=== PATIENT | female | born 1985 | race African-American/Black ===

== ENCOUNTER 2016-12-06 23:31 | Emergency (ER) | payer SELFPAY | END 2016-12-07 00:10 | disposition left against medical advice (07) | LOC: ER 23:31 | DX: Z53.21 Procedure and treatment not carried out due to patient leaving prior to being seen by health care provider (principal) ==

== ENCOUNTER 2020-06-12 21:00 | Emergency (ER) | payer SELFPAY ==
--- NOTE | 2020-06-12 22:04 | ER Document Report ---
ED Medical Screen (RME) - General Chief Complaint: Flank Pain Stated Complaint: FLANK PAIN/LOWER ABDOMINAL PAIN Time Seen by Provider: 06/12/20 22:00 Mode of Arrival: Ambulatory Information source: Patient Notes: Patient is a 35-year-old female comes emergency room complaining of lower pelvic pain. Patient states it started just a little over a week ago when she thought she had a urinary tract infection. She has some urgency and pain and discomfort with that. She also finished her. 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 Patient is sexually active with same partner. She denies any discharge vaginally. She does states that her bowel movements are slightly off there slightly than usual but it does not appear to be a C. 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 difficile in the past but nothing recently. She has not been on any antibiotics recently either. Patient denies any history of hypertension or diabetes. She does smoke. She denies any history of kidney stones in the past and does not have any kind of back or flank pain. She has not been nauseated or vomiting with this discomfort. Physical examination: Patient is a well-nourished well-developed 35-year-old female no apparent distress on examination. Cardiac: Patient is a regular rate and rhythm on the monitor of 95 bpm no murmurs auscultated. Lungs: Bilateral breath sounds breath sounds increased clear auscultation. Abdomen: In the sitting position patient has bowel sounds present all 4 quads although she has some mild tenderness suprapubically in a sitting position to palpation there is no periumbilical tenderness that I can palpate at this time by sitting. Patient has no flank tenderness to percussion. I have greeted and performed a rapid initial assessment of this patient. A comprehensive ED assessment and evaluation of the patient, analysis of test results and completion of the medical decision making process will be conducted by additional ED providers. Dictation of this chart was performed using voice recognition software; therefore, there may be some unintended grammatical errors. TRAVEL OUTSIDE OF THE [place] IN LAST 30 DAYS: No - Related Data Allergies/Adverse Reactions: No Known Allergies Allergy (Verified 09/02/15 00:30) Past Medical History Past Surgical History: Reports: Hx Umbilical Hernia - Immunizations Immunizations up to date: Yes Hx Diphtheria, Pertussis, Tetanus Vaccination: Yes Physical Exam - Vital signs Vitals: Temp Pulse Resp BP Pulse Ox 97.9 F 96 17 166/112 H 100 06/12/20 21:05 06/12/20 21:05 06/12/20 21:05 06/12/20 21:05 06/12/20 21:05 Course - Vital Signs Vital signs: Temp Pulse Resp BP Pulse Ox 97.9 F 96 17 166/112 H 100 06/12/20 21:05 06/12/20 21:05 06/12/20 21:05 06/12/20 21:05 06/12/20 21:05
[2020-06-12 23:12] LABS: APPEARANCE,URINE CLEAR; BILIRUBIN,URINE NEGATIVE (NEGATIVE); COLOR,URINE YELLOW; GLUCOSE, URINE NEGATIVE (NEGATIVE); KETONES,URINE TRACE mg/dL (NEGATIVE); LEUKOCYTE ESTERASE,URINE NEGATIVE (NEGATIVE); NITRITE,URINE NEGATIVE (NEGATIVE); PROTEIN,URINE NEGATIVE (NEGATIVE); URINE SPECIFIC GRAVITY 1.015; UROBILINOGEN,URINE NEGATIVE mg/dL (<2.0)
--- NOTE | 2020-06-13 02:47 | ER Document Report ---
ED GI/ - General Chief Complaint: Urinary Problem Stated Complaint: FLANK PAIN/LOWER ABDOMINAL PAIN Time Seen by Provider: 06/12/20 22:00 Primary Care Provider: FARHAN EGAN MD [ACTIVE STAFF] - Follow up in 1 week Mode of Arrival: Ambulatory Notes: Patient is a 35-year-old female who comes to the emergency department for chief complaint of lower abdominal pain. Pain is slightly worse on the left side but is on both sides. She occasionally feels some pain in her lower back as well. She states she has some urinary frequency and mild discomfort afterwards, denies vaginal bleeding or discharge. She denies vomiting but states she has occasional vague nausea. She is able to eat without difficulty. She reports "slightly slimy" bowel movements but denies abdominal vomit otherwise. She has had an umbilical hernia repair years ago, orthopedic surgery, denies medical history otherwise, denies any daily medications. TRAVEL OUTSIDE OF THE [place] IN LAST 30 DAYS: No - Related Data Allergies/Adverse Reactions: No Known Allergies Allergy (Verified 09/02/15 00:30) Past Medical History - General Information source: Patient - Social History Smoking Status: Current Some Day Smoker Frequency of alcohol use: None Drug Abuse: None Lives with: Family Family History: Reviewed & Not Pertinent Past Surgical History: Reports: Hx Umbilical Hernia - Immunizations Immunizations up to date: Yes Hx Diphtheria, Pertussis, Tetanus Vaccination: Yes Review of Systems - Review of Systems Constitutional: No symptoms reported EENT: No symptoms reported Cardiovascular: No symptoms reported Respiratory: No symptoms reported Gastrointestinal: See HPI Genitourinary: See HPI Female Genitourinary: See HPI Musculoskeletal: No symptoms reported Skin: No symptoms reported Hematologic/Lymphatic: No symptoms reported Neurological/Psychological: No symptoms reported Physical Exam - Vital signs Vitals: Temp Pulse Resp BP Pulse Ox 97.9 F 96 17 166/112 H 100 06/12/20 21:05 06/12/20 21:05 06/12/20 21:05 06/12/20 21:05 06/12/20 21:05 - Notes Notes: GENERAL: Alert, interacts well. No acute distress. HEAD: Normocephalic, atraumatic. EYES: Pupils equal, round, and reactive to light. Extraocular movements intact. ENT: Oral mucosa moist, tongue midline. Oropharynx unremarkable. Airway patent. Nares patent, sinuses non-tender, ear canals unremarkable, TM's intact. NECK: Full range of motion. Supple. Trachea midline. No lymphadenopathy. LUNGS: Clear to auscultation bilaterally, no wheezes, rales, or rhonchi. No respiratory distress. Non-tender chest wall. HEART: Regular rate and rhythm. No murmur ABDOMEN: Soft, non-tender. Non-distended. Bowel sounds present in all 4 quadrants. GENITOURINARY: Deferred EXTREMITIES: Moves all 4 extremities spontaneously. No edema, normal radial and dorsalis pedis pulses bilaterally. No cyanosis. BACK: no cervical, thoracic, lumbar midline tenderness. No saddle anesthesia, normal distal neurovascular exam. Moves all extremities in full range of motion. NEUROLOGICAL: Alert and oriented x3. Normal speech. Cranial nerves II through XII grossly intact. Strength 5/5 in all extremities. PSYCH: Normal affect, normal mood. SKIN: Warm, dry, normal turgor. No rashes or lesions noted. Course - Re-evaluation Re-evalutation: Patient is talkative and well-appearing. However despite location that she tells me patient is actually somewhat tender in the mid to upper abdomen in addition to mildly tender in the lower abdomen. Symptoms have been going on for couple of weeks. There is no guarding, distention, rigidity. No CVA tenderness. CBC, chemistry, urinalysis are all unremarkable. Ultrasound without any acute findings, shows incidental nabothian cyst. KUB unremarkable per read although does appear to show some retained stool and gas on review. I did discuss different options including pelvic exam but this was declined, patient states she had this recently and was negative. Based on her evaluation very low suspicion of acute abdomen. I suspect pain is most likely bowel in nature, she will be treated for this, she was referred to gastroenterology, I discussed return precautions, patient states appreciation and agreement. Stable and well-appearing at time of discharge. Patient hypertensive here, however no headache, chest pain, or current complaints on my reevaluation. Patient states she will have this rechecked with primary care. - Vital Signs Vital signs: Temp Pulse Resp BP Pulse Ox 98.3 F 74 16 142/108 H 100 06/13/20 05:30 06/13/20 05:30 06/13/20 05:30 06/13/20 05:30 06/13/20 05:30 - Laboratory Result Diagrams: 06/13/20 03:01 06/13/20 03:01 Laboratory results interpreted by me: 06/12/20 06/13/20 06/13/20 21:21 03:01 03:01 MCH 26.5 L Potassium 3.5 L Glucose 115 H Urine Ketones TRACE H Urine Blood MODERATE H Discharge - Discharge Clinical Impression: Abdominal pain Qualifiers: Abdominal location: generalized Qualified Code(s): R10.84 - Generalized abdomin al pain Condition: Stable Disposition: HOME, SELF-CARE Additional Instructions: Your ultrasound and laboratory work-up do not show any concerning findings, your urine does not show infection. Based on your imaging, symptoms, and evaluation I suspect your pain is coming from your bowel. I recommend that the Bentyl, Colace, and Zofran as prescribed. You can also take Tylenol and/or ibuprofen if needed additionally. Symptoms should simply go away. 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 Return if you worsen including severe worsening pain, vomiting, fever, or any ot her concerning symptoms. Prescriptions: Dicyclomine HCl [Bentyl 20 mg Tablet] 20 mg PO QID PRN #20 tablet PRN Reason: Docusate Sodium [Colace 100 mg Capsule] 100 mg PO ASDIR PRN #30 capsule PRN Reason: Ondansetron [Zofran Odt 4 mg Tablet] 1 - 2 tab PO Q4H PRN #15 tab.rapdis PRN Reason: For Nausea/Vomiting Forms: Return to Work Referrals: FARHAN EGAN MD [ACTIVE STAFF] - Follow up in 1 week
[2020-06-13 03:20] LABS: ABSOLUTE BASOPHILS # (AUTO) 0.1 10^3/uL (0.0-0.2); ABSOLUTE EOSINOPHILS # (AUTO) 0.1 10^3/uL (0.0-0.6); ABSOLUTE LYMPHOCYTES (AUTO) 2.4 10^3/uL (0.5-4.7); ABSOLUTE MONOCYTES (AUTO) 0.8 10^3/uL (0.1-1.4); BASOPHILS % (AUTO) 0.6 % (0-2); EOSINOPHILS % (AUTO) 1.3 % (0-6); HEMATOCRIT 42.4 % (36.0-47.0); HEMOGLOBIN 13.8 g/dL (12.0-15.5); LYMPHOCYTES % (AUTO) 22.8 % (13-45); MEAN CORPUSCULAR HEMOGLOBIN 26.5 pg (27.0-33.4); MEAN CORPUSCULAR HGB CONC 32.4 g/dL (32.0-36.0); MEAN CORPUSCULAR VOLUME 82 fl (80-97); MONOCYTES % (AUTO) 7.4 % (3-13); PLATELET COUNT 334 10^3/uL (150-450); RED CELL DISTRIBUTION WIDTH 13.7 % (11.5-14.0); SEGMENTED NEUTROPHILS % (AUTO) 67.9 % (42-78); TOTAL CELLS COUNTED % (AUTO) 100 %; WHITE BLOOD COUNT 10.4 10^3/uL (4.0-10.5)
[2020-06-13 03:32] LABS: ALBUMIN 4.6 g/dL (3.5-5.0); ALKALINE PHOSPHATASE 77 U/L (38-126); ANION GAP 10 (5-19); ASPARTATE AMINO TRANSFERASE 20 U/L (14-36); BILIRUBIN,TOTAL 0.3 mg/dL (0.2-1.3); BLOOD UREA NITROGEN 9 mg/dL (7-20); CALCIUM 9.9 mg/dL (8.4-10.2); CARBON DIOXIDE 30 mmol/L (22-30); CHLORIDE 101 mmol/L (98-107); GLUCOSE 115 mg/dL (75-110); POTASSIUM 3.5 mmol/L (3.6-5.0); TOTAL PROTEIN 7.8 g/dL (6.3-8.2)
--- NOTE | 2020-06-13 03:34 | RADIOLOGY REPORT (SQ) ---
EXAM DESCRIPTION: X-ray abdomen 1 view CLINICAL DATA: 35 years Female abd pain/swelling TECHNICAL DATA: A single AP supine x-ray of the abdomen was performed on 06/13/2020 at 2:56 AM. Comparison: None. FINDINGS: The bowel gas pattern is nonspecific and nonobstructive. No pathologic abdominal or pelvic calcifications are identified. No abnormal air collections are identified. No focal soft tissue abnormalities are seen. No acute osseous abnormalities are identified. IMPRESSION: Nonspecific nonobstructive bowel gas pattern.
--- NOTE | 2020-06-13 03:57 | RADIOLOGY REPORT (SQ) ---
EXAM: US Pelvis Complete CLINICAL DATA: 35 years Female lower abd/left pelvic pain, LMP: 06/01/2020 TECHNICAL DATA: Ultrasound imaging of the pelvis was performed transabdominally and endovaginally on 06/13/2020 03:40. COMPARISONS: None FINDINGS: The uterus is normal in size, shape and echogenicity and measures 7.0 x 3.2 x 3.7 cm. The endometrial complex measures 0.7 cm in thickness. There is no endometrial fluid. The cervix measures approximately 2.9 cm in length. There is trace fluid in the endocervical canal. There is a small sharply circumscribed focal area of decreased echogenicity within the cervix to the right of midline with enhanced through transmission of sound measuring approximately 0.8 x 0.6 x 0.7 cm. This likely represents a mildly complex cervical nabothian cyst. The right ovary measures 2.3 x 1.6 x 2.1 cm. The right ovary contains normal follicles. Doppler imaging demonstrates normal spectral and color Doppler flow. The left ovary measures 2.9 x 2.2 x 1.7 cm. The left ovary contains normal follicles. Doppler imaging demonstrates normal spectral waveforms and color Doppler flow. There is no free fluid in the pelvis. IMPRESSION: 1. Essentially normal pelvic ultrasound. 2. Suspect subcentimeter cervical nabothian cyst.
[2020-06-13 05:32] VITALS: BP 142/108
== END 2020-06-13 05:10 | disposition home or self-care (01) ==
LOC: ER 21:00
DX: R10.84 Generalized abdominal pain (principal); R10.2 Pelvic and perineal pain; R30.0 Dysuria
CPT/HCPCS: 36415; 74018; 76830; 80053; 81001; 81025; 85025; 87086; 93976; 99285